=== PATIENT | female | born 1955 | race Two or more races ===

== ENCOUNTER 2017-03-10 20:59 | Emergency (ER) | payer OTHER ==
[~2017-03-10] VITALS: Ht 167.6 cm; Wt 77.1 kg
[2017-03-10] MEDS ORDERED: HCTZ/LISINOPRIL (21:34)
--- NOTE | 2017-03-10 22:08 | Emergency Room Report ---
History of Present Illness General Chief Complaint: Pain Source: Patient Present Illness HPI This is a 61-year-old female with no past medical history. She presents with right leg pain. Onset about a week. She travels a lot and was in [place] last week. Denies any fever or chills. Pain with walking. Some edema. Pain to the back of the calf on the right leg. Pain is 8/10. No radiation. No other complaint. No short of breath. She's not a smoker, on control, or has a family history of DVT/PE. Allergies: Coded Allergies: No Known Allergies (Unverified , 03/10/17) Patient History Past Medical History: none, see triage record, old chart reviewed Past Surgical History: none Pertinent Family History: none Social History: Denies: smoking Now: No Immunizations: other Reviewed Nursing Documentation: PMH: Agreed, PSxH: Agreed Nursing Documentation-PMH Hx Hypertension: Yes Review of Systems Eye: Denies: eye pain, blurred vision ENT: Denies: ear pain, nose congestion, throat swelling Respiratory: Denies: cough, shortness of breath Cardiovascular: Denies: chest pain, palpitations Gastrointestinal: Denies: abdominal pain, diarrhea, nausea, vomiting Musculoskeletal: Reports: muscle pain, Denies: back pain, joint pain Skin: Denies: rash Neurological: Denies: headache, numbness Endocrine: Denies: increased thirst, increased urine Hematologic/Lymphatic: Denies: easy bruising All Other Systems: negative except mentioned in HPI Physical Exam Vital Signs Date Time Temp Pulse Resp B/P (MAP) Pulse Ox O2 Delivery O2 Flow Rate FiO2 03/10/17 21:29 98.4 70 16 158/94 98 Room Air vitals with high blood pressure Sp02 EP Interpretation: reviewed, normal General Appearance: well appearing, no apparent distress, alert Head: normocephalic, atraumatic Eyes: bilateral eye PERRL, bilateral eye EOMI ENT: hearing grossly normal, normal pharynx Neck: full range of motion, supple, no meningismus Respiratory: chest non-tender, lungs clear, normal breath sounds Cardiovascular #1: regular rate, rhythm, no murmur Gastrointestinal: normal bowel sounds, non tender, no mass, no organomegaly, no bruit, non-distended Musculoskeletal: back normal, gait/station normal, normal range of motion, other - Right lower extremity with tenderness over the proximal lateral calf. There is about a one and half centimeter increase in circumference compared to left. Pulses normal. Sensation normal. Psychiatric: mood/affect normal Skin: warm/dry Medical Decision Making Diagnostic Impression: Primary Impression: Pain in right lower leg ER Course patient with right leg pain. Most likely muscle strain since ultrasound negative for DVT or Campuzano's cyst. We'll discharge home. CT/MRI/US Diagnostic Results CT/MRI/US Diagnostic Results : Imaging Test Ordered: Ultrasound right leg Impression no DVT per the spray ii painter. Last Vital Signs Date Time Temp Pulse Resp B/P (MAP) Pulse Ox O2 Delivery O2 Flow Rate FiO2 03/10/17 21:29 98.4 70 16 158/94 98 Room Air Status: improved Disposition: HOME, SELF-CARE Condition: Stable Scripts Ibuprofen* (MOTRIN*) 600 Mg Tablet 600 MG ORAL THREE TIMES A DAY, #30 TAB 0 Refills Prov: GIGI BAXTER M.D. 03/10/17 Referrals: NON PHYSICIAN (PCP) Additional Instructions: Followup with your DrJohn in 7 days. Return if symptom worsen. GIGI BAXTER M.D. Mar 10, 2017 22:08
[2017-03-10 22:30] VITALS: BP 158/94
[2017-03-10] MEDS ORDERED: IBUPROFEN600 MG ORAL (23:20)
[2017-03-10 23:51] VITALS: BP 149/85
== END 2017-03-10 23:51 | disposition home or self-care (01) ==
LOC: EMR 21:11
DX: M79.604 Pain in right leg (principal); R60.0 Localized edema; I10 Essential (primary) hypertension
CPT/HCPCS: 93971; 99284